=== PATIENT | female | born 1990 | race African-American/Black ===

== ENCOUNTER 2018-03-02 09:30 | Emergency (ER) | payer OTHER ==
[2018-03-02] MEDS ORDERED: SODIUM CHLORIDE 0.9% 2,000 ML IV STA (09:41)
[2018-03-02] MEDS ORDERED: ONDANSETRON 4 MG/2 ML VIAL IVP STA (09:41)
[2018-03-02] MEDS ORDERED: METOCLOPRAMIDE 5 MG/ML 2 ML VIAL IVP STA (09:48)
[2018-03-02] MEDS ORDERED: diphenhydrAMINE 50 MG/ML 1 ML VIAL IVP STA (09:48)
--- NOTE | 2018-03-02 09:59 | ED ---
Abdominal Pain HPI - General Chief Complaint: Abdominal Pain Stated Complaint: vomiting Time Seen by Provider: 03/02/18 09:41 Source: patient, RN notes reviewed Mode of arrival: ambulatory Limitations: no limitations - History of Present Illness Initial Comments: 27-year-old female presents emergency Department chief complaint of nausea vomiting diarrhea. Patient states that she was seen at [facility] yesterday for similar complaints. She was discharged with Zofran states has not been helping. She still has been dry heaving. Patient reports no fever no chills no chest pain or shortness of breath. Denies any headache or dizziness. She states she has diffuse abdominal pain no localized abdominal pain. Patient states that she also feels like she has heartburn at this time. Patient denies any chance . - Related Data Previous Rx's Medication Instructions Recorded Metoclopramide [Reglan] 10 mg PO TID PRN #15 tab 03/02/18 Allergies Allergy/AdvReac Type Severity Reaction Status Date / Time No Known Allergies Allergy Unverified 03/02/18 10:23 Review of Systems ROS Statement: Those systems with pertinent positive or pertinent negative responses have been documented in the HPI. ROS Other: All systems not noted in ROS Statement are negative. Past Medical History Past Medical History: No Reported History History of Any Multi-Drug Resistant Organisms: None Reported Past Surgical History: No Surgical Hx Reported Past Psychological History: No Psychological Hx Reported Smoking Status: Never smoker Past Alcohol Use History: Rare Past Drug Use History: Marijuana General Exam Limitations: no limitations General appearance: alert, in no apparent distress Head exam: Present: atraumatic, normocephalic, normal inspection Eye exam: Present: normal appearance, PERRL, EOMI. Absent: scleral icterus, conjunctival injection, periorbital swelling ENT exam: Present: normal exam, normal oropharynx, mucous membranes moist Neck exam: Present: normal inspection, full ROM. Absent: tenderness, meningismus, lymphadenopathy Respiratory exam: Present: normal lung sounds bilaterally. Absent: respiratory distress, wheezes, rales, rhonchi, stridor Cardiovascular Exam: Present: regular rate, normal rhythm, normal heart sounds. Absent: systolic murmur, diastolic murmur, rubs, gallop, clicks GI/Abdominal exam: Present: soft, tenderness (Mild diffuse), normal bowel sounds. Absent: distended, guarding, rebound, rigid Course Vital Signs 03/02/18 09:43 Pulse Rate 70 Respiratory 20 Rate Blood Pressure 153/90 O2 Sat by Pulse 100 Oximetry Medical Decision Making - Medical Decision Making 27-year-old female presents from for nausea vomiting. Patient is also diarrhea consistent with gastritis. Patient was hydrated given Benadryl and Reglan states that she has not vomited here feels improved. Patient will be discharged. - Lab Data Result diagrams: 03/02/18 09:50 03/02/18 09:50 Lab Results 03/02/18 03/02/18 03/02/18 Range/Units 09:50 09:50 10:10 WBC 15.6 H (3.8-10.6) k/uL RBC 4.41 (3.80-5.40) m/uL Hgb 11.4 (11.4-16.0) gm/dL Hct 35.4 (34.0-46.0) % MCV 80.3 (80.0-100.0) fL MCH 25.8 (25.0-35.0) pg MCHC 32.1 (31.0-37.0) g/dL RDW 14.2 (11.5-15.5) % Plt Count 416 (150-450) k/uL Neutrophils % 73 % Lymphocytes % 19 % Monocytes % 6 % Eosinophils % 1 % Basophils % 0 % Neutrophils # 11.4 H (1.3-7.7) k/uL Lymphocytes # 3.0 (1.0-4.8) k/uL Monocytes # 0.9 (0-1.0) k/uL Eosinophils # 0.2 (0-0.7) k/uL Basophils # 0.0 (0-0.2) k/uL Sodium 143 (137-145) mmol/L Potassium 3.8 (3.5-5.1) mmol/L Chloride 103 (98-107) mmol/L Carbon Dioxide 25 (22-30) mmol/L Anion Gap 15 mmol/L BUN 16 (7-17) mg/dL Creatinine 0.71 (0.52-1.04) mg/dL Est GFR (CKD-EPI)AfAm >90 (>60 ml/min/1.73 sqM) Est GFR (CKD-EPI)NonAf >90 (>60 ml/min/1.73 sqM) Glucose 106 H (74-99) mg/dL Calcium 10.1 (8.4-10.2) mg/dL Total Bilirubin 0.6 (0.2-1.3) mg/dL AST 23 (14-36) U/L ALT 31 (9-52) U/L Alkaline Phosphatase 75 (38-126) U/L Total Protein 7.6 (6.3-8.2) g/dL Albumin 4.6 (3.5-5.0) g/dL Amylase 46 (30-110) U/L Lipase 32 (23-300) U/L Urine Color Urine Appearance (Clear) Urine pH (5.0-8.0) Ur Specific [place] (1.001-1.035) Urine Protein (Negative) Urine Glucose (UA) (Negative) Urine Ketones (Negative) Urine Blood (Negative) Urine Nitrite (Negative) Urine Bilirubin (Negative) Urine Urobilinogen (<2.0) mg/dL Ur Leukocyte Esterase (Negative) Urine RBC (0-5) /hpf Urine WBC (0-5) /hpf Ur Squamous Epith Cells (0-4) /hpf Urine Mucus (None) /hpf Urine HCG, Qual Not Detected (Not Detectd) 03/02/18 Range/Units 10:10 WBC (3.8-10.6) k/uL RBC (3.80-5.40) m/uL Hgb (11.4-16.0) gm/dL Hct (34.0-46.0) % MCV (80.0-100.0) fL MCH (25.0-35.0) pg MCHC (31.0-37.0) g/dL RDW (11.5-15.5) % Plt Count (150-450) k/uL Neutrophils % % Lymphocytes % % Monocytes % % Eosinophils % % Basophils % % Neutrophils # (1.3-7.7) k/uL Lymphocytes # (1.0-4.8) k/uL Monocytes # (0-1.0) k/uL Eosinophils # (0-0.7) k/uL Basophils # (0-0.2) k/uL Sodium (137-145) mmol/L Potassium (3.5-5.1) mmol/L Chloride (98-107) mmol/L Carbon Dioxide (22-30) mmol/L Anion Gap mmol/L BUN (7-17) mg/dL Creatinine (0.52-1.04) mg/dL Est GFR (CKD-EPI)AfAm (>60 ml/min/1.73 sqM) Est GFR (CKD-EPI)NonAf (>60 ml/min/1.73 sqM) Glucose (74-99) mg/dL Calcium (8.4-10.2) mg/dL Total Bilirubin (0.2-1.3) mg/dL AST (14-36) U/L ALT (9-52) U/L Alkaline Phosphatase (38-126) U/L Total Protein (6.3-8.2) g/dL Albumin (3.5-5.0) g/dL Amylase (30-110) U/L Lipase (23-300) U/L Urine Color Yellow Urine Appearance Turbid H (Clear) Urine pH 6.0 (5.0-8.0) Ur Specific [place] 1.026 (1.001-1.035) Urine Protein 1+ H (Negative) Urine Glucose (UA) Negative (Negative) Urine Ketones 1+ H (Negative) Urine Blood Small H (Negative) Urine Nitrite Negative (Negative) Urine Bilirubin Negative (Negative) Urine Urobilinogen 2.0 (<2.0) mg/dL Ur Leukocyte Esterase Negative (Negative) Urine RBC 10 H (0-5) /hpf Urine WBC 3 (0-5) /hpf Ur Squamous Epith Cells 29 H (0-4) /hpf Urine Mucus Many H (None) /hpf Urine HCG, Qual (Not Detectd) Disposition Clinical Impression: Gastroenteritis Disposition: HOME SELF-CARE Condition: Stable Instructions: Gastroenteritis (ED) Additional Instructions: Please return to the Emergency Department if symptoms worsen or any other concerns. Prescriptions: Metoclopramide [Reglan] 10 mg PO TID PRN #15 tab PRN Reason: GERD Is patient prescribed a controlled substance at d/c from ED?: No Referrals: None,Stated [Primary Care Provider] - 1-2 days
[2018-03-02 10:22] LABS: Basophils % (A) 0 %; Eosinophils # (A) 0.2 k/uL (0-0.7); Eosinophils % (A) 1 %; HCT 35.4 % (34.0-46.0); HGB 11.4 gm/dL (11.4-16.0); Lymphocytes % (A) 19 %; MCH 25.8 pg (25.0-35.0); MCHC 32.1 g/dL (31.0-37.0); MCV 80.3 fL (80.0-100.0); Mean Platelet Volume 7.6; Monocytes # (A) 0.9 k/uL (0-1.0); Monocytes % (A) 6 %; Neutrophils # (A) 11.4 k/uL (1.3-7.7); Neutrophils % (A) 73 %; Platelet Count 416 k/uL (150-450); RBC 4.41 m/uL (3.80-5.40); RDW 14.2 % (11.5-15.5); WBC 15.6 k/uL (3.8-10.6)
[2018-03-02 10:27] LABS: Appearance,Urine Turbid (Clear); Bilirubin,Urine Negative (Negative); Blood,Urine Small (Negative); Color,Urine Yellow; Glucose,Urine (UA) Negative (Negative); Ketones,Urine 1+ (Negative); Leukocyte Esterase,Urine Negative (Negative); Mucus,Urine Many /hpf; Nitrite,Urine Negative (Negative); Protein,Urine 1+ (Negative); RBC,Urine 10 /hpf (0-5); Specific Gravity,Urine 1.026 (1.001-1.035); Squamous Epithelial Cell,Urine 29 /hpf (0-4); WBC,Urine 3 /hpf (0-5)
[2018-03-02 10:33] LABS: ALT 31 U/L (9-52); AST 23 U/L (14-36); Albumin 4.6 g/dL (3.5-5.0); Alkaline Phosphatase 75 U/L (38-126); Amylase 46 U/L (30-110); Anion Gap 15 mmol/L; Blood Urea Nitrogen 16 mg/dL (7-17); Calcium 10.1 mg/dL (8.4-10.2); Carbon Dioxide 25 mmol/L (22-30); Chloride 103 mmol/L (98-107); Glucose 106 mg/dL (74-99); Lipase 32 U/L (23-300); Potassium 3.8 mmol/L (3.5-5.1); Sodium 143 mmol/L (137-145); Total Bilirubin 0.6 mg/dL (0.2-1.3); Total Protein 7.6 g/dL (6.3-8.2)
[2018-03-02 11:28] VITALS: BP 137/68; PULSE 65; RESP 16; TEMP 98
== END 2018-03-02 11:54 | disposition home or self-care (01) ==
LOC: EC 09:30
DX: K52.9 Noninfective gastroenteritis and colitis, unspecified (principal); Z53.8 Procedure and treatment not carried out for other reasons
CPT/HCPCS: 36415; 80053; 82150; 83690; 85025; 81001; 81025; 99284; 96374; 96375; 96361 ×2; J1200; J2765

== ENCOUNTER 2021-05-27 17:57 | Emergency (ER) | payer OTHER ==
[2021-05-27 19:49] VITALS: RESP 18
[2021-05-27] MEDS ORDERED: SODIUM CHLORIDE 0.9% 1,000 ML IV STA (20:28)
[2021-05-27] MEDS ORDERED: KETOROLAC 15 MG/ML 1 ML VIAL IVP STA (20:28)
[2021-05-27] MEDS ORDERED: ONDANSETRON 4 MG/2 ML VIAL IVP STA (20:28)
[2021-05-27 20:40] LABS: Basophils # (A) 0.1 k/uL (0-0.2); Basophils % (A) 1 %; Eosinophils # (A) 0.3 k/uL (0-0.7); Eosinophils % (A) 2 %; HCT 39.8 % (34.0-46.0); HGB 12.9 gm/dL (11.4-16.0); Lymphocytes # (A) 3.7 k/uL (1.0-4.8); Lymphocytes % (A) 27 %; MCH 27.2 pg (25.0-35.0); MCHC 32.3 g/dL (31.0-37.0); MCV 84.3 fL (80.0-100.0); Monocytes # (A) 0.6 k/uL (0-1.0); Monocytes % (A) 5 %; Neutrophils # (A) 8.7 k/uL (1.3-7.7); Neutrophils % (A) 64 %; Platelet Count 316 k/uL (150-450); RBC 4.72 m/uL (3.80-5.40); RDW 13.5 % (11.5-15.5); WBC 13.6 k/uL (3.8-10.6)
[2021-05-27 20:42] LABS: Appearance,Urine Cloudy (Clear); Bilirubin,Urine Negative (Negative); Blood,Urine Trace (Negative); Color,Urine Yellow; Glucose,Urine (UA) Negative (Negative); Hyaline Casts,Urine 1 /lpf (0-2); Ketones,Urine Trace (Negative); Leukocyte Esterase,Urine Negative (Negative); Mucus,Urine Many /hpf; Nitrite,Urine Negative (Negative); PH, Urine 5.5 (5.0-8.0); Protein,Urine 1+ (Negative); RBC,Urine 3 /hpf (0-5); Specific Gravity,Urine 1.031 (1.001-1.035); Squamous Epithelial Cell,Urine 2 /hpf (0-4); WBC,Urine 1 /hpf (0-5)
[2021-05-27 20:49] LABS: ALT 13 U/L (4-34); AST 19 U/L (14-36); African American GFR (CKD) >90 (>60 ml/min/1.73 sqM); Albumin 4.4 g/dL (3.5-5.0); Alkaline Phosphatase 59 U/L (38-126); Amylase 65 U/L (30-110); Anion Gap 7 mmol/L; Blood Urea Nitrogen 11 mg/dL (7-17); Carbon Dioxide 26 mmol/L (22-30); Chloride 102 mmol/L (98-107); Glucose 94 mg/dL (74-99); Lipase 256 U/L (23-300); Non-African American GFR(CKD) >90 (>60 ml/min/1.73 sqM); Potassium 3.7 mmol/L (3.5-5.1); Sodium 135 mmol/L (137-145); Total Bilirubin 0.3 mg/dL (0.2-1.3); Total Protein 7.2 g/dL (6.3-8.2)
[2021-05-27] MEDS ORDERED: diphenhydrAMINE 50 MG/ML 1 ML VIAL IVP STA (21:45)
[2021-05-27] MEDS ORDERED: HYDROmorphone 0.5 MG/0.5 ML SYRINGE IVP STA (21:45)
[2021-05-27] MEDS ORDERED: METOCLOPRAMIDE 5 MG/ML 2 ML VIAL IVP STA (21:45)
--- NOTE | 2021-05-27 21:53 | CT ---
EXAMINATION TYPE: CT abdomen pelvis w con DATE OF EXAM: 05/27/2021 COMPARISON: HISTORY: Abdominal pain, vomiting. Pt vomiting after 1 min delay, could not continue study. CT DLP: 407 mGycm Automated exposure control for dose reduction was used. TECHNIQUE: Helical acquisition of images was performed from the lung bases through the pelvis. CONTRAST: Performed without Oral Contrast and with IV Contrast, patient injected with 100 mL of Isovue 300. FINDINGS: LUNG BASES: Normal. LIVER: Normal. BILIARY SYSTEM: Normal. PANCREAS: Normal. SPLEEN: Normal. ADRENALS: Normal. KIDNEYS: Normal. BOWEL: No obstruction or thickening. Appendix is not definitively seen, however there is no evidence of pericecal inflammatory change. PERITONEUM: No pneumoperitoneum. Trace pelvic free fluid. LYMPH NODES: No lymphadenopathy. PELVIS: Underdistended urinary bladder. There are multiple soft tissue masses associated with the nida frantz. Fluid within the endometrial canal. Trace pelvic free fluid is likely physiologic. VASCULATURE: No abdominal aortic aneurysm. MUSCULOSKELETAL: No acute osseous abnormality. IMPRESSION: 1. No evidence of bowel obstruction or thickening. No acute findings to explain patient's vomiting. 2. Multiple soft tissue masses of the uterus. Findings may represent extensive large uterine fibroid s. Further workup with pelvic ultrasound and ultimately likely pelvic MRI is recommended.
[2021-05-27] MEDS ORDERED: ONDANSETRON 4 MG ODT STARTER PACK 2 TAB BTL PO STA (23:20)
--- NOTE | 2021-05-27 23:20 | ED ---
General Adult HPI - General Chief complaint: Abdominal Pain Stated complaint: abd pain Time Seen by Provider: 05/27/21 20:06 Source: patient Mode of arrival: ambulatory Limitations: no limitations - History of Present Illness Initial comments: 30-year-old female presents to the emergency room for a chief complaint of abdominal pain. Patient reports that she has had abdominal pain for the past week or so. States she has also had nausea vomiting. Patient denies diarrhea. Denies fevers. Patient does admit to smoking marijuana. Patient states she has been to another hospital 3 times and has not had blood work or imaging performed.Patient has no other complaints at this time including shortness of breath, chest pain, headache, or visual changes. - Related Data Previous Rx's Medication Instructions Recorded Dicyclomine [Bentyl] 20 mg PO TID PRN #20 tablet 05/27/21 Ondansetron [Zofran ODT] 4 mg PO Q8HR PRN #15 tab 05/27/21 Allergies Allergy/AdvReac Type Severity Reaction Status Date / Time No Known Allergies Allergy Verified 05/27/21 20:58 Review of Systems ROS Statement: Those systems with pertinent positive or pertinent negative responses have been documented in the HPI. ROS Other: All systems not noted in ROS Statement are negative. Past Medical History Past Medical History: No Reported History History of Any Multi-Drug Resistant Organisms: None Reported Past Surgical History: No Surgical Hx Reported Past Psychological History: No Psychological Hx Reported Smoking Status: Current some day smoker Past Alcohol Use History: Rare Past Drug Use History: Marijuana General Exam Limitations: no limitations General appearance: alert, in no apparent distress Head exam: Present: atraumatic, normocephalic, normal inspection Eye exam: Present: normal appearance, PERRL, EOMI. Absent: scleral icterus, conjunctival injection, periorbital swelling ENT exam: Present: normal exam, mucous membranes moist Neck exam: Present: normal inspection, full ROM. Absent: tenderness, meningismus, lymphadenopathy Respiratory exam: Present: normal lung sounds bilaterally. Absent: respiratory distress, wheezes, rales, rhonchi, stridor Cardiovascular Exam: Present: regular rate, normal rhythm, normal heart sounds. Absent: systolic murmur, diastolic murmur, rubs, gallop, clicks GI/Abdominal exam: Present: soft, tenderness (Generalized abdominal tenderness), normal bowel sounds. Absent: distended, guarding, rebound, rigid Course Vital Signs 05/27/21 19:45 Temperature 98 F Pulse Rate 65 Respiratory 18 Rate Blood Pressure 110/64 O2 Sat by Pulse 100 Oximetry Medical Decision Making - Medical Decision Making Vitals are stable. HPI physical exam is documented. Mild leukocytosis likely related to vomiting. CMP is unremarkable. Urinalysis does show trace ketones likely related to dehydration, patient was given IV fluids. CT abdomen and pelvis showed no evidence of bowel infection or thickening. There are however multiple soft tissue masses of the uterus they may represent extensive large uterine fibroids. Further workup with pelvic ultrasound and ultimately likely pelvic MRI is recommended. Discussed these with patient. She will need to follow up with primary care or [facility] for this. Patient was given pain medication and nausea medication and did have significant improvement in symptoms. She is stable for discharge home. - Lab Data Result diagrams: 05/27/21 Unknown 05/27/21 Unknown Lab Results 05/27/21 05/27/21 05/27/21 Range/Units Unknown Unknown Unknown WBC 13.6 H (3.8-10.6) k/uL RBC 4.72 (3.80-5.40) m/uL Hgb 12.9 (11.4-16.0) gm/dL Hct 39.8 (34.0-46.0) % MCV 84.3 (80.0-100.0) fL MCH 27.2 (25.0-35.0) pg MCHC 32.3 (31.0-37.0) g/dL RDW 13.5 (11.5-15.5) % Plt Count 316 (150-450) k/uL MPV 8.0 Neutrophils % 64 % Lymphocytes % 27 % Monocytes % 5 % Eosinophils % 2 % Basophils % 1 % Neutrophils # 8.7 H (1.3-7.7) k/uL Lymphocytes # 3.7 (1.0-4.8) k/uL Monocytes # 0.6 (0-1.0) k/uL Eosinophils # 0.3 (0-0.7) k/uL Basophils # 0.1 (0-0.2) k/uL Sodium (137-145) mmol/L Potassium (3.5-5.1) mmol/L Chloride (98-107) mmol/L Carbon Dioxide (22-30) mmol/L Anion Gap mmol/L BUN (7-17) mg/dL Creatinine (0.52-1.04) mg/dL Est GFR (CKD-EPI)AfAm (>60 ml/min/1.73 sqM) Est GFR (CKD-EPI)NonAf (>60 ml/min/1.73 sqM) Glucose (74-99) mg/dL Calcium (8.4-10.2) mg/dL Total Bilirubin (0.2-1.3) mg/dL AST (14-36) U/L ALT (4-34) U/L Alkaline Phosphatase (38-126) U/L Total Protein (6.3-8.2) g/dL Albumin (3.5-5.0) g/dL Amylase (30-110) U/L Lipase (23-300) U/L Urine Color Yellow Urine Appearance Cloudy H (Clear) Urine pH 5.5 (5.0-8.0) Ur Specific [place] 1.031 (1.001-1.035) Urine Protein 1+ H (Negative) Urine Glucose (UA) Negative (Negative) Urine Ketones Trace H (Negative) Urine Blood Trace H (Negative) Urine Nitrite Negative (Negative) Urine Bilirubin Negative (Negative) Urine Urobilinogen 3.0 (<2.0) mg/dL Ur Leukocyte Esterase Negative (Negative) Urine RBC 3 (0-5) /hpf Urine WBC 1 (0-5) /hpf Ur Squamous Epith Cells 2 (0-4) /hpf Hyaline Casts 1 (0-2) /lpf Urine Mucus Many H (None) /hpf Urine HCG, Qual Not Detected (Not Detectd) 05/27/21 Range/Units Unknown WBC (3.8-10.6) k/uL RBC (3.80-5.40) m/uL Hgb (11.4-16.0) gm/dL Hct (34.0-46.0) % MCV (80.0-100.0) fL MCH (25.0-35.0) pg MCHC (31.0-37.0) g/dL RDW (11.5-15.5) % Plt Count (150-450) k/uL MPV Neutrophils % % Lymphocytes % % Monocytes % % Eosinophils % % Basophils % % Neutrophils # (1.3-7.7) k/uL Lymphocytes # (1.0-4.8) k/uL Monocytes # (0-1.0) k/uL Eosinophils # (0-0.7) k/uL Basophils # (0-0.2) k/uL Sodium 135 L (137-145) mmol/L Potassium 3.7 (3.5-5.1) mmol/L Chloride 102 (98-107) mmol/L Carbon Dioxide 26 (22-30) mmol/L Anion Gap 7 mmol/L BUN 11 (7-17) mg/dL Creatinine 0.80 (0.52-1.04) mg/dL Est GFR (CKD-EPI)AfAm >90 (>60 ml/min/1.73 sqM) Est GFR (CKD-EPI)NonAf >90 (>60 ml/min/1.73 sqM) Glucose 94 (74-99) mg/dL Calcium 10.0 (8.4-10.2) mg/dL Total Bilirubin 0.3 (0.2-1.3) mg/dL AST 19 (14-36) U/L ALT 13 (4-34) U/L Alkaline Phosphatase 59 (38-126) U/L Total Protein 7.2 (6.3-8.2) g/dL Albumin 4.4 (3.5-5.0) g/dL Amylase 65 (30-110) U/L Lipase 256 (23-300) U/L Urine Color Urine Appearance (Clear) Urine pH (5.0-8.0) Ur Specific [place] (1.001-1.035) Urine Protein (Negative) Urine Glucose (UA) (Negative) Urine Ketones (Negative) Urine Blood (Negative) Urine Nitrite (Negative) Urine Bilirubin (Negative) Urine Urobilinogen (<2.0) mg/dL Ur Leukocyte Esterase (Negative) Urine RBC (0-5) /hpf Urine WBC (0-5) /hpf Ur Squamous Epith Cells (0-4) /hpf Hyaline Casts (0-2) /lpf Urine Mucus (None) /hpf Urine HCG, Qual (Not Detectd) Disposition Clinical Impression: Abdominal pain, Mass of uterus Disposition: HOME SELF-CARE Condition: Good Instructions (If sedation given, give patient instructions): Abdominal Pain (ED) Additional Instructions: Take medication as directed. Follow-up with primary care. Return for any worsening symptoms. Prescriptions: Dicyclomine [Bentyl] 20 mg PO TID PRN #20 tablet PRN Reason: abdominal pain Ondansetron [Zofran ODT] 4 mg PO Q8HR PRN #15 tab PRN Reason: Nausea Is patient prescribed a controlled substance at d/c from ED?: No Referrals: Micki Smith MD [STAFF PHYSICIAN] - 1-2 days Sloan Bermudez MD [STAFF PHYSICIAN] - 1-2 days Time of Disposition: 23:19
[2021-05-27 23:31] VITALS: BP 108/64; PULSE 61; TEMP 99.1
== END 2021-05-27 23:30 | disposition home or self-care (01) ==
LOC: EC 17:57
DX: N85.8 Other specified noninflammatory disorders of uterus (principal); F17.200 Nicotine dependence, unspecified, uncomplicated; F12.90 Cannabis use, unspecified, uncomplicated
CPT/HCPCS: 36415; 80053; 82150; 83690; 85025; 81001; 81025; 74177; 99284; 96374; 96375 ×4; 96361; J1200; J2765; J2405; J1885; S0119; J1170; Q9967

== ENCOUNTER → 2021-11-14 | Outpatient (CLI) | payer OTHER ==
--- NOTE | 2021-11-14 10:43 | MR ---
EXAMINATION TYPE: MR cervical spine wo/w con DATE OF EXAM: 11/14/2021 COMPARISON: None HISTORY: Neck and left shoulder pain down left arm into fingers TECHNIQUE: Multiplanar, multisequence images of the cervical spine were acquired without contrast and with 7 mL intravenous Gadavist gadolinium contrast. Diffusion weighted imaging was performed. C2-C3: No evidence for degenerative disc disease. No disc bulge/herniation or protrusion. No Canal stenosis. Foramina are patent bilaterally. C3-C4: No evidence for degenerative disc disease. No disc bulge/herniation or protrusion. No Canal stenosis. Foramina are patent bilaterally. C4-C5: Right paracentral disc Bulge with hypertrophic spurring of the uncovertebral joints. No significant foraminal encroachment. No spinal cord contact. Mild disc desiccation. C5-C6: No evidence for degenerative disc disease. No disc bulge/herniation or protrusion. No Canal stenosis. Foramina are patent bilaterally. Mild disc desiccation C6-C7: No evidence for degenerative disc disease. No disc bulge/herniation or protrusion. No Canal stenosis. Foramina are patent bilaterally. C7-T1: No evidence for degenerative disc disease. No disc bulge/herniation or protrusion. No Canal stenosis. Foramina are patent bilaterally. Cervical segments are intact. There is normal alignment. Cervical spinal cord is of normal signal. Craniovertebral junction relationships are within normal limits. Thyroid gland prominent in size. IMPRESSION: 1. Uncovertebral joint hypertrophy C4-C5 on the right with right paracentral disc broad-based disc bu lging or small protrusion. 2. Thyroid appears somewhat prominent in size correlate clinically.
== END | disposition home or self-care (01) ==
LOC: RADMRIMAIN 09:15
PROVIDERS: ATTEND Family Medicine
DX: M47.812 Spondylosis without myelopathy or radiculopathy, cervical region (principal); M50.221 Other cervical disc displacement at C4-C5 level
CPT/HCPCS: 72156; A9585

== ENCOUNTER → 2022-02-24 | Outpatient (CLI) | payer OTHER ==
--- NOTE | 2022-02-25 16:14 | US ---
EXAMINATION TYPE: Transabdominal DATE OF EXAM: 02/24/2022 4:48 PM COMPARISON: NONE CLINICAL HISTORY: Z36.89 ENCOUNTER FOR OTHER SPECIFIED SCREENING. dates EXAM PERFORMED: Transabdominal (TA) EXAM MEASUREMENTS: GESTATIONAL AGE / DATING Physician Established: Not yet established Dates by LMP: (12 weeks/3 days) EDC: 09/05/2022 Dates by First Scan: No previous this is first scan Dates by Current Scan for: (13eeks/1 days) EDC: 08/31/2022 MATERNAL ANATOMY Uterus: 14.2 x 11.9 x 8.6 cm. Multiple fibroids visualized. Largest right = 6.0 x 5.7 x 5.4 cm. La rgest midline/fundal = 5.4 x 5.3 x 5.2 cm. Largest left anterior = 4.5 x 5.1 x 3.4 cm Right Ovary: Not visualized Left Ovary: Not visualized Post CDS / Adnexa: no free fluid Presence of free fluid: no Presence of subchorionic bleed: 1.2 x 2.3 x 0.7 cm. GESTATION / SURVEY CRL: 6.8 cm 13 weeks/1 days) MSD: seen not measured Yolk Sac (normal less than 6mm): 3.3 mm Heart Rate: 162 bpm Rhythm: Normal IUP: Viable IUP Date of LMP: 11/29/2021, G Beta HcG (if available): Not available at this time Single live IUP measuring 13 weeks 1 day. Multiple fibroids visualized. Largest right = 6.0 x 5.7 x 5.4 cm. Largest midline/fundal = 5.4 x 5.3 x 5.2 cm. Largest left anterior = 4.5 x 5.1 x 3.4 cm. IMPRESSION: 1. Single intrauterine gestation estimated at 13 weeks 1 day gestation based on the crown-rump length . Cardiac activity measures 162 bpm. 2. Multiple large fibroids measuring approximately 5 to 6 cm each.
== END | disposition home or self-care (01) ==
LOC: RADUSWWP 16:29
PROVIDERS: ATTEND Obstetrics & Gynecology
DX: O34.11 Maternal care for benign tumor of corpus uteri, first trimester (principal); D25.9 Leiomyoma of uterus, unspecified; Z3A.13 13 weeks gestation of pregnancy
CPT/HCPCS: 76801

== ENCOUNTER 2022-02-27 20:54 | Emergency (ER) | payer OTHER ==
[2022-02-27 21:28] VITALS: BP 97/60; PULSE 107; RESP 16; TEMP 98.2
--- NOTE | 2022-02-27 22:48 | US ---
EXAMINATION TYPE: Transabdominal DATE OF EXAM: 02/27/2022 10:32 PM COMPARISON: 02/24/2022 CLINICAL HISTORY: bleeding. EXAM PERFORMED: Transabdominal (TA) EXAM MEASUREMENTS: GESTATIONAL AGE / DATING Physician Established: Not yet established Dates by LMP: (12 weeks/6 days) EDC: 09-05-22 Dates by First Scan: No previous this is first scan Dates by Current Scan for: (13 weeks/1 days) EDC: 09-03-22 MATERNAL ANATOMY Uterus: Fibroid uterus with >5 large fibroids, probable largest 2 measuring 5.7 x 5.0 x 6.2cm and 6.o x 4.1 x 6.0cm Right Ovary: obscured by overlying bowel and increased uterine size Left Ovary: obscured by overlying bowel and increased uterine size Post CDS / Adnexa: wnl Presence of free fluid: no Presence of subchorionic bleed:no GESTATION / SURVEY CRL: 6.9cm (13 weeks/1 days) Yolk Sac (normal less than 6mm): not seen Heart Rate: 160 bpm Rhythm: Normal IUP: Viable IUP Age Appropriate Anatomy Cord Insertion: Visualized Limbs: Visualized Calvarium: Visualized Date of LMP: 11-29-21 Beta HcG (if available): Not available at this time IMPRESSION: Single living intrauterine fetus with a gestational age of 13 weeks and 1 day according to the crown- rump length. Uterine fibroids. no complicating process seen. No adverse change.
[2022-02-27 22:53] LABS: Basophils # (A) 0.1 k/uL (0-0.2); Basophils % (A) 1 %; Eosinophils # (A) 0.4 k/uL (0-0.7); Eosinophils % (A) 2 %; HCT 35.1 % (34.0-46.0); Lymphocytes # (A) 3.5 k/uL (1.0-4.8); Lymphocytes % (A) 22 %; MCH 25.9 pg (25.0-35.0); MCHC 31.2 g/dL (31.0-37.0); MCV 83.1 fL (80.0-100.0); Mean Platelet Volume 7.5; Monocytes # (A) 0.9 k/uL (0-1.0); Monocytes % (A) 5 %; Neutrophils # (A) 11.2 k/uL (1.3-7.7); Neutrophils % (A) 69 %; Platelet Count 264 k/uL (150-450); RBC 4.23 m/uL (3.80-5.40); WBC 16.3 k/uL (3.8-10.6)
[2022-02-27 23:00] LABS: Appearance,Urine Cloudy (Clear); Bacteria,Urine Rare /hpf; Bilirubin,Urine Negative (Negative); Blood,Urine Large (Negative); Color,Urine Yellow; Glucose,Urine (UA) Negative (Negative); Ketones,Urine Trace (Negative); Leukocyte Esterase,Urine Small (Negative); Mucus,Urine Few /hpf; Nitrite,Urine Negative (Negative); Protein,Urine Trace (Negative); RBC,Urine 4 /hpf (0-5); Specific Gravity,Urine 1.026 (1.001-1.035); Squamous Epithelial Cell,Urine 22 /hpf (0-4); WBC,Urine 7 /hpf (0-5)
[2022-02-27 23:32] LABS: ALT 10 U/L (4-34); AST 17 U/L (14-36); African American GFR (CKD) >90 (>60 ml/min/1.73 sqM); Albumin 4.1 g/dL (3.5-5.0); Alkaline Phosphatase 52 U/L (38-126); Anion Gap 8 mmol/L; Blood Urea Nitrogen 13 mg/dL (7-17); Carbon Dioxide 23 mmol/L (22-30); Chloride 104 mmol/L (98-107); Glucose 98 mg/dL (74-99); Non-African American GFR(CKD) >90 (>60 ml/min/1.73 sqM); Sodium 135 mmol/L (137-145); Total Bilirubin 0.3 mg/dL (0.2-1.3); Total Protein 7.1 g/dL (6.3-8.2)
[2022-02-28 00:28] LABS: HCG,Quantitative Serum 25744.4 mIU/mL
== END 2022-02-27 23:45 | disposition left against medical advice (07) ==
LOC: EC 20:54
DX: Z53.21 Procedure and treatment not carried out due to patient leaving prior to being seen by health care provider (principal)
CPT/HCPCS: 36415; 76801; 80053; 81001; 84702; 85025; 86850; 86900; 86901; 99499

== ENCOUNTER → 2022-03-12 | Outpatient (CLI) | payer OTHER ==
--- NOTE | 2022-03-12 13:53 | US ---
EXAMINATION TYPE: US abdomen complete DATE OF EXAM: 03/12/2022 COMPARISON: NONE CLINICAL HISTORY: Z34.82 SUPRVSN OF NORMAL PREG, R11.2 NAUSE, R10.84. Nausea/vomiting. Patient is 15 weeks . EXAM MEASUREMENTS: Liver Length: 14.0 cm Gallbladder Wall: 0.18 cm CBD: 0.49 cm Spleen: 9.4 cm Right Kidney: 10.4 x 5.6 x 4.1 cm Left Kidney: 11.1 x 5.4 x 5.7 cm Limited due to gas, patient had difficulty holding her breath. Pancreas: Slightly limited due to gas. Liver: No abnormalities seen. Gallbladder: Multiple folds seen, limited due to bowel gas. Evidence for sonographic Collado's sign: No CBD: Portions seen appear wnl Spleen: Appears wnl Right Kidney: No hydronephrosis or masses seen. Limited visibility of lower pole. Left Kidney: No hydronephrosis or masses seen, limited due to gas. Upper IVC: Appears wnl Abd Aorta: Portions seen appear wnl. Unable to visualize iliacs at this time. IMPRESSION: 1. Normal abdomen ultrasound
== END | disposition home or self-care (01) ==
LOC: RADUSWWP 07:36
PROVIDERS: ATTEND Family Medicine
DX: R11.2 Nausea with vomiting, unspecified (principal); R10.84 Generalized abdominal pain
CPT/HCPCS: 76700

== ENCOUNTER 2022-04-21 09:14 | Outpatient (CLI) | payer OTHER ==
[2022-04-21 10:13] LABS: Appearance,Urine Cloudy (Clear); Bilirubin,Urine Negative (Negative); Blood,Urine Negative (Negative); Color,Urine Yellow; Glucose,Urine (UA) Negative (Negative); Ketones,Urine Negative (Negative); Leukocyte Esterase,Urine Negative (Negative); Mucus,Urine Rare /hpf; Nitrite,Urine Negative (Negative); Protein,Urine Negative (Negative); RBC,Urine 1 /hpf (0-5); Specific Gravity,Urine 1.018 (1.001-1.035); Squamous Epithelial Cell,Urine 19 /hpf (0-4); Urobilinogen,Urine <2.0 mg/dL (<2.0); WBC,Urine 3 /hpf (0-5)
[2022-04-21 10:49] VITALS: BP 92/52; PULSE 84; RESP 17; TEMP 98.4
--- NOTE | 2022-04-22 06:25 | P.MSEPDOC ---
Presenting Problems - Arrival Data Date of Arrival on Unit: 04/21/22 Time of Arrival on Unit: 09:14 Mode of Transport: Ambulatory - Complaint OB-Reason for Admission/Chief Complaint: Pain Comment: Pt was sent over from [facility] due to abd and back pain, and cramping, pt denies any pain at this time Medical History - Information : 2 Para: 0 Term: 0 : 0 Abortions: Spontaneous or Elective: 1 Number of Living Children: 0 - Gestational Age Gestational Age by TIBURCIO (wks/days): 21 Weeks and 1 Days Review of Systems - Review of Systems Constitutional: No problems Breast: No problems ENT: No problems Cardiovascular: No problems Respiratory: No problems Gastrointestinal: No problems Genitourinary: No problems Musculoskeletal: No problems Neurological: No problems Skin: No problems Vital Signs - Temperature Temperature: 98.4 F Temperature Source: Temporal Artery Scan - Pulse Right Brachial Pulse Rate: 84 Pulse Assessment Method: Automatic Cuff - Respirations Respiratory Rate: 17 Oxygen Delivery Method: Room Air - Blood Pressure Right Arm Blood Pressure: 92/52 Blood Pressure Mean: 65 Blood Pressure Source: Automatic Cuff Medical Screen Scoring - Cervical Exam Dilation (cm): 0 - Uterine Contractions Frequency From (mins): 0 - Assessment - Baby A Baseline FHR: 140 Heart Rate - NICHD Category: Category I (Normal) Physician Notification - Physician Notified Physician Notified Date: 04/21/22 Physician Notified Time: 10:35 Physician: Stoney Pagan New Order Received: No Maternal Triage Index - Maternal Triage Index Presenting for scheduled procedure w/no complaint: No - Stat/Priority 1 Stat Priority 1: No - Urgent/Priority 2 Urgent Priority 2: No - Prompt/Priority 3 Prompt Priority 3: No - Non-Urgent/Priority 4 Non-Urgent Priority 4: Yes Criteria Met for Priority 4: Pt was sent over from [facility] due to abd and back pain, and cramping, pt denies any pain at this time, GA 21 10/10 Disposition - Disposition OB Disposition: Triage, Discharge to home, Written follow up instructions reviewed Discharge Date: 04/21/22 Discharge Time: 10:35 I agree with the RN Medical Screening Exam: Yes Case reviewed; plan agreed upon as documented in EMR&OBIX.: Yes Diagnosis: FALSE LABOR BEFORE 37 COMPLETED WEEKS OF GEST, THIRD TRI
== END 2022-04-21 10:35 | disposition home or self-care (01) ==
LOC: FBPOP 09:14
PROVIDERS: ATTEND Obstetrics & Gynecology
DX: O47.02 False labor before 37 completed weeks of gestation, second trimester (principal); Z3A.21 21 weeks gestation of pregnancy
CPT/HCPCS: 81001; G0463; 99213

== ENCOUNTER 2022-04-28 10:31 | Outpatient (CLI) | payer OTHER ==
[2022-04-28 11:31] VITALS: BP 104/55; PULSE 85; RESP 16; TEMP 97.1
--- NOTE | 2022-05-01 08:47 | P.MSEPDOC ---
Presenting Problems - Arrival Data Date of Arrival on Unit: 04/28/22 Time of Arrival on Unit: 10:31 Mode of Transport: Ambulatory - Complaint OB-Reason for Admission/Chief Complaint: Pain Comment: Ab cramping x 1 hr; resolved at present Medical History - Information : 1 - Gestational Age Gestational Age by TIBURCIO (wks/days): 22 Weeks and 1 Days - History Comment: Uterine fibroids Review of Systems - Review of Systems Constitutional: No problems Breast: No problems ENT: No problems Cardiovascular: No problems Respiratory: No problems Gastrointestinal: No problems Genitourinary: No problems Musculoskeletal: No problems Neurological: No problems Skin: No problems Vital Signs - Temperature Temperature: 97.1 F Temperature Source: Temporal Artery Scan - Pulse Right Sitting Ulnar Pulse Rate: 85 Pulse Assessment Method: Automatic Cuff - Respirations Respiratory Rate: 16 Oxygen Delivery Method: Room Air O2 Sat by Pulse Oximetry: 99 - Blood Pressure Right Arm Sitting Blood Pressure: 104/55 Blood Pressure Mean: 71 Blood Pressure Source: Automatic Cuff Medical Screen Scoring - Assessment - Baby A Baseline FHR: 150 Physician Notification - Physician Notified Physician Notified Date: 04/28/22 Physician Notified Time: 11:15 Physician: Flaquita Shea Order Received: Yes - Notification Comment Comment: Spk c\Dr. Shea, [facility]ts arrival to triage, , 10/10, c/o abd pain x 1. hr, resolved after eating and have a bowel movement. Pt being followed by MFM for. uterine fibroids, has an appt Wednesday. Ab soft and nontender. No LOF or VB. Dr. Shea. states no SVE at this time. Maternal Triage Index - Maternal Triage Index Presenting for scheduled procedure w/no complaint: No - Stat/Priority 1 Stat Priority 1: No - Urgent/Priority 2 Urgent Priority 2: No - Prompt/Priority 3 Prompt Priority 3: No - Non-Urgent/Priority 4 Non-Urgent Priority 4: Yes Criteria Met for Priority 4: Ab pain, resolved at present Disposition - Disposition OB Disposition: Discharge to home, Written follow up instructions reviewed Discharge Date: 04/28/22 Discharge Time: 11:20 I agree with the RN Medical Screening Exam: Yes Case reviewed; plan agreed upon as documented in EMR&OBIX.: Yes Diagnosis: RELATED CONDITIONS, UNSPECIFIED, SECOND TRIMESTER
== END 2022-04-28 11:20 | disposition home or self-care (01) ==
LOC: FBPOP 10:31
PROVIDERS: ATTEND Obstetrics & Gynecology
DX: O26.892 Other specified pregnancy related conditions, second trimester (principal); R10.9 Unspecified abdominal pain; Z3A.22 22 weeks gestation of pregnancy
CPT/HCPCS: 99213